=== PATIENT | male | born 1960 | race African-American/Black ===

== ENCOUNTER 2023-01-15 14:26 | Inpatient (IN) | payer MEDICARE, MEDICAID ==
[2023-01-15] MEDS ORDERED: cloNIDine 0.1 MG TAB PO PRN (16:08)
[2023-01-15] MEDS ORDERED: Acetaminophen 325 MG TAB PO PRN (16:08)
[2023-01-15] MEDS ORDERED: Non-Formulary Item 1 EACH (Ertapenem 1 GM Vial) IVPB SCH (16:15)
[2023-01-15] MEDS ORDERED: metFORMIN 500 MG TAB PO SCH (17:00)
[2023-01-15 19:50] VITALS: BMI 19.4
[2023-01-15 20:41] LABS: SARS-CoV-2 NAA Rapid Test Not Detected (NotDetected)
[2023-01-15] MEDS: Brinzolamide 1% Ophth SUSP 10 ml Bottle L EYE SCH (21:37)
[2023-01-15] MEDS: Polyethylene Glycol 3350 17 GM Packet PO SCH (21:39)
[2023-01-15] MEDS: Bacitracin 1 PK TOP SCH (21:43)
[2023-01-15] MEDS: carBAMazepine 200 MG TAB PO SCH (21:44)
[2023-01-15] MEDS: Docusate 100 MG CAP PO SCH (21:44)
[2023-01-15] MEDS: Calcium Carbonate 600 MG + Vit D TAB PO SCH (21:44)
[2023-01-15] MEDS: Baclofen 10 MG TAB PO SCH (21:45)
[2023-01-15] MEDS: Ursodiol 300 MG CAP PO SCH (21:45)
[2023-01-15] MEDS: OLANZapine ODT 5 MG TAB PO SCH (21:45)
[2023-01-15] MEDS: Ferrous Sulfate 325 MG TAB PO SCH (21:46)
[2023-01-15] MEDS: Folic Acid 1 MG TAB PO SCH (21:46)
[2023-01-15] MEDS: Latanoprost 0.005% Ophth Soln 2.5 ml Bottle L EYE SCH (21:46)
[2023-01-15] MEDS: Timolol 0.5% Ophth Soln 5 ml Bottle L EYE SCH (21:56)
[2023-01-15] MEDS: Lisinopril 20 MG TAB PO SCH (21:58)
[2023-01-15] MEDS: ACETYLCYSTEINE 600 MG PO SCH (21:59)
[2023-01-15] MEDS: Brimonidine Tartrate 0.2% Ophth Soln 5 ml Bottle L EYE SCH (22:08)
[2023-01-16 05:30] LABS: Hemoglobin 9.7 g/dL (14.0-18.0); Platelet Count 469 10x3/uL (130-400)
[2023-01-16] MEDS ORDERED: MICONAZOLE NITRATE DT SCH (09:00)
[2023-01-16] MEDS: Polyethylene Glycol 3350 17 GM Packet PO SCH ×3 (09:08→21:51)
[2023-01-16] MEDS: Bacitracin 1 PK TOP SCH ×2 (09:10→21:52)
[2023-01-16] MEDS: carBAMazepine 200 MG TAB PO SCH ×2 (09:11→21:55)
[2023-01-16] MEDS: Ursodiol 300 MG CAP PO SCH ×3 (09:11→21:53)
[2023-01-16] MEDS: Rosuvastatin 10 MG TAB PO SCH (09:11)
[2023-01-16] MEDS: Docusate 100 MG CAP PO SCH ×2 (09:12→21:53)
[2023-01-16] MEDS: Ferrous Sulfate 325 MG TAB PO SCH ×2 (09:12→21:54)
[2023-01-16] MEDS: Baclofen 10 MG TAB PO SCH ×2 (09:12→21:54)
[2023-01-16] MEDS: Calcium Carbonate 600 MG + Vit D TAB PO SCH ×2 (09:12→21:53)
[2023-01-16] MEDS: Lisinopril 20 MG TAB PO SCH ×2 (09:12→21:54)
[2023-01-16] MEDS: Folic Acid 1 MG TAB PO SCH ×2 (09:12→21:55)
[2023-01-16] MEDS: Brimonidine Tartrate 0.2% Ophth Soln 5 ml Bottle L EYE SCH ×2 (09:17→22:05)
[2023-01-16] MEDS: Brinzolamide 1% Ophth SUSP 10 ml Bottle L EYE SCH ×3 (09:19→21:42)
[2023-01-16] MEDS: Timolol 0.5% Ophth Soln 5 ml Bottle L EYE SCH ×2 (09:24→21:58)
[2023-01-16] MEDS: Nystatin Powder 15 GM BOT TOP SCH ×2 (09:38→22:01)
[2023-01-16] MEDS: ACETYLCYSTEINE 600 MG PO SCH (09:55)
[2023-01-16] MEDS ORDERED: Meropenem 1 GM in Sodium Chloride 0.9% 100 ML IVPB SCH (12:00)
[2023-01-16] MEDS ORDERED: Ertapenem 1 GM in Sodium Chloride 0.9% 100 ML IVPB SCH (12:00)
[2023-01-16] MEDS: Meropenem 1 GM in Sodium Chloride 0.9% 100 ML IVPB SCH (21:43)
[2023-01-16] MEDS: Latanoprost 0.005% Ophth Soln 2.5 ml Bottle L EYE SCH (21:49)
[2023-01-16] MEDS: OLANZapine ODT 5 MG TAB PO SCH (21:53)
[2023-01-17] MEDS: Meropenem 1 GM in Sodium Chloride 0.9% 100 ML IVPB SCH ×3 (05:23→22:06)
[2023-01-17] MEDS: Brimonidine Tartrate 0.2% Ophth Soln 5 ml Bottle L EYE SCH ×2 (09:02→22:25)
[2023-01-17] MEDS: Ursodiol 300 MG CAP PO SCH ×3 (09:04→22:10)
[2023-01-17] MEDS: Rosuvastatin 10 MG TAB PO SCH (09:04)
[2023-01-17] MEDS: Polyethylene Glycol 3350 17 GM Packet PO SCH ×3 (09:04→22:03)
[2023-01-17] MEDS: Bacitracin 1 PK TOP SCH ×2 (09:04→22:04)
[2023-01-17] MEDS: Lisinopril 20 MG TAB PO SCH ×2 (09:06→22:10)
[2023-01-17] MEDS: Ferrous Sulfate 325 MG TAB PO SCH ×2 (09:06→22:10)
[2023-01-17] MEDS: Calcium Carbonate 600 MG + Vit D TAB PO SCH ×2 (09:06→22:10)
[2023-01-17] MEDS: Timolol 0.5% Ophth Soln 5 ml Bottle L EYE SCH ×2 (09:07→21:59)
[2023-01-17] MEDS: metFORMIN 500 MG TAB PO SCH (09:07)
[2023-01-17] MEDS: Baclofen 10 MG TAB PO SCH ×2 (09:09→22:10)
[2023-01-17] MEDS: Folic Acid 1 MG TAB PO SCH ×2 (09:09→22:10)
[2023-01-17] MEDS: Docusate 100 MG CAP PO SCH ×2 (09:09→22:10)
[2023-01-17] MEDS: carBAMazepine 200 MG TAB PO SCH ×2 (09:09→22:10)
[2023-01-17] MEDS: Brinzolamide 1% Ophth SUSP 10 ml Bottle L EYE SCH ×3 (09:12→22:35)
[2023-01-17] MEDS: Nystatin Powder 15 GM BOT TOP SCH ×2 (09:12→22:05)
[2023-01-17] MEDS: OLANZapine ODT 5 MG TAB PO SCH (22:10)
[2023-01-17] MEDS: Latanoprost 0.005% Ophth Soln 2.5 ml Bottle L EYE SCH (22:20)
[2023-01-18] MEDS: Meropenem 1 GM in Sodium Chloride 0.9% 100 ML IVPB SCH ×3 (05:47→22:04)
[2023-01-18] MEDS: Brinzolamide 1% Ophth SUSP 10 ml Bottle L EYE SCH ×3 (08:51→20:41)
[2023-01-18] MEDS: Polyethylene Glycol 3350 17 GM Packet PO SCH ×3 (08:54→20:26)
[2023-01-18] MEDS: carBAMazepine 200 MG TAB PO SCH ×2 (08:54→20:29)
[2023-01-18] MEDS: Calcium Carbonate 600 MG + Vit D TAB PO SCH ×2 (08:55→20:29)
[2023-01-18] MEDS: Bacitracin 1 PK TOP SCH ×2 (08:55→20:26)
[2023-01-18] MEDS: Lisinopril 20 MG TAB PO SCH ×2 (08:55→20:29)
[2023-01-18] MEDS: Rosuvastatin 10 MG TAB PO SCH (08:55)
[2023-01-18] MEDS: Brimonidine Tartrate 0.2% Ophth Soln 5 ml Bottle L EYE SCH ×2 (08:55→20:46)
[2023-01-18] MEDS: Ursodiol 300 MG CAP PO SCH ×3 (08:55→20:29)
[2023-01-18] MEDS: Ferrous Sulfate 325 MG TAB PO SCH ×2 (08:56→20:29)
[2023-01-18] MEDS: Baclofen 10 MG TAB PO SCH ×2 (08:56→20:29)
[2023-01-18] MEDS: Folic Acid 1 MG TAB PO SCH ×2 (08:56→20:29)
[2023-01-18] MEDS: metFORMIN 500 MG TAB PO SCH (08:56)
[2023-01-18] MEDS: Docusate 100 MG CAP PO SCH ×2 (08:56→20:28)
[2023-01-18] MEDS: Timolol 0.5% Ophth Soln 5 ml Bottle L EYE SCH ×2 (08:59→20:26)
[2023-01-18] MEDS: Nystatin Powder 15 GM BOT TOP SCH ×2 (09:00→20:30)
[2023-01-18] MEDS: OLANZapine ODT 5 MG TAB PO SCH (20:28)
[2023-01-18] MEDS: Latanoprost 0.005% Ophth Soln 2.5 ml Bottle L EYE SCH (20:34)
[2023-01-19] MEDS: Meropenem 1 GM in Sodium Chloride 0.9% 100 ML IVPB SCH ×3 (05:43→21:45)
[2023-01-19] MEDS: Brimonidine Tartrate 0.2% Ophth Soln 5 ml Bottle L EYE SCH ×2 (08:49→21:44)
[2023-01-19] MEDS: Bacitracin 1 PK TOP SCH ×2 (08:50→21:34)
[2023-01-19] MEDS: Ursodiol 300 MG CAP PO SCH ×3 (08:51→21:35)
[2023-01-19] MEDS: carBAMazepine 200 MG TAB PO SCH ×2 (08:51→21:36)
[2023-01-19] MEDS: Rosuvastatin 10 MG TAB PO SCH (08:51)
[2023-01-19] MEDS: Calcium Carbonate 600 MG + Vit D TAB PO SCH ×2 (08:52→21:36)
[2023-01-19] MEDS: Brinzolamide 1% Ophth SUSP 10 ml Bottle L EYE SCH ×3 (08:52→21:49)
[2023-01-19] MEDS: Lisinopril 20 MG TAB PO SCH ×2 (08:52→21:37)
[2023-01-19] MEDS: metFORMIN 500 MG TAB PO SCH (08:53)
[2023-01-19] MEDS: Folic Acid 1 MG TAB PO SCH ×2 (08:53→21:36)
[2023-01-19] MEDS: Docusate 100 MG CAP PO SCH ×2 (08:53→21:36)
[2023-01-19] MEDS: Baclofen 10 MG TAB PO SCH ×2 (08:55→21:36)
[2023-01-19] MEDS: Ferrous Sulfate 325 MG TAB PO SCH ×2 (08:55→21:36)
[2023-01-19] MEDS: Nystatin Powder 15 GM BOT TOP SCH ×2 (08:57→21:34)
[2023-01-19] MEDS: Timolol 0.5% Ophth Soln 5 ml Bottle L EYE SCH ×2 (08:58→21:32)
[2023-01-19] MEDS: Polyethylene Glycol 3350 17 GM Packet PO SCH ×3 (09:03→21:33)
[2023-01-19] MEDS: OLANZapine ODT 5 MG TAB PO SCH (21:36)
[2023-01-19] MEDS: Latanoprost 0.005% Ophth Soln 2.5 ml Bottle L EYE SCH (21:38)
[2023-01-20] MEDS: Meropenem 1 GM in Sodium Chloride 0.9% 100 ML IVPB SCH ×3 (05:23→21:50)
[2023-01-20] MEDS: Bacitracin 1 PK TOP SCH ×2 (09:10→21:49)
[2023-01-20] MEDS: metFORMIN 500 MG TAB PO SCH (09:10)
[2023-01-20] MEDS: Lisinopril 20 MG TAB PO SCH ×2 (09:10→21:58)
[2023-01-20] MEDS: Ursodiol 300 MG CAP PO SCH ×3 (09:11→21:56)
[2023-01-20] MEDS: Ferrous Sulfate 325 MG TAB PO SCH ×2 (09:11→21:56)
[2023-01-20] MEDS: Baclofen 10 MG TAB PO SCH ×2 (09:11→21:58)
[2023-01-20] MEDS: Folic Acid 1 MG TAB PO SCH ×2 (09:11→21:56)
[2023-01-20] MEDS: carBAMazepine 200 MG TAB PO SCH ×2 (09:11→21:56)
[2023-01-20] MEDS: Docusate 100 MG CAP PO SCH ×2 (09:11→21:56)
[2023-01-20] MEDS: Calcium Carbonate 600 MG + Vit D TAB PO SCH ×2 (09:11→21:57)
[2023-01-20] MEDS: Polyethylene Glycol 3350 17 GM Packet PO SCH ×3 (09:12→21:48)
[2023-01-20] MEDS: Timolol 0.5% Ophth Soln 5 ml Bottle L EYE SCH ×2 (09:14→22:05)
[2023-01-20] MEDS: Brinzolamide 1% Ophth SUSP 10 ml Bottle L EYE SCH ×3 (09:15→21:47)
[2023-01-20] MEDS: Brimonidine Tartrate 0.2% Ophth Soln 5 ml Bottle L EYE SCH ×2 (09:16→21:55)
[2023-01-20] MEDS: Nystatin Powder 15 GM BOT TOP SCH ×2 (09:17→21:49)
[2023-01-20] MEDS: Rosuvastatin 10 MG TAB PO SCH ×2 (10:56→21:56)
[2023-01-20] MEDS: OLANZapine ODT 5 MG TAB PO SCH (21:57)
[2023-01-20] MEDS: Latanoprost 0.005% Ophth Soln 2.5 ml Bottle L EYE SCH (22:12)
[2023-01-21] MEDS: Meropenem 1 GM in Sodium Chloride 0.9% 100 ML IVPB SCH ×3 (05:22→21:47)
[2023-01-21] MEDS: metFORMIN 500 MG TAB PO SCH (09:11)
[2023-01-21] MEDS: Bacitracin 1 PK TOP SCH ×2 (09:11→21:36)
[2023-01-21] MEDS: Ursodiol 300 MG CAP PO SCH ×3 (09:12→21:37)
[2023-01-21] MEDS: Baclofen 10 MG TAB PO SCH ×2 (09:12→21:38)
[2023-01-21] MEDS: Brimonidine Tartrate 0.2% Ophth Soln 5 ml Bottle L EYE SCH ×2 (09:13→21:49)
[2023-01-21] MEDS: carBAMazepine 200 MG TAB PO SCH ×2 (09:13→21:38)
[2023-01-21] MEDS: Polyethylene Glycol 3350 17 GM Packet PO SCH ×3 (09:19→21:36)
[2023-01-21] MEDS: Docusate 100 MG CAP PO SCH ×2 (09:20→21:37)
[2023-01-21] MEDS: Ferrous Sulfate 325 MG TAB PO SCH ×2 (09:20→21:38)
[2023-01-21] MEDS: Calcium Carbonate 600 MG + Vit D TAB PO SCH ×2 (09:21→21:37)
[2023-01-21] MEDS: Folic Acid 1 MG TAB PO SCH ×2 (09:21→21:57)
[2023-01-21] MEDS: Nystatin Powder 15 GM BOT TOP SCH ×2 (09:22→21:56)
[2023-01-21] MEDS: Lisinopril 20 MG TAB PO SCH ×2 (09:25→21:38)
[2023-01-21] MEDS: Timolol 0.5% Ophth Soln 5 ml Bottle L EYE SCH ×2 (09:26→21:41)
[2023-01-21] MEDS: Brinzolamide 1% Ophth SUSP 10 ml Bottle L EYE SCH ×3 (09:28→21:35)
[2023-01-21] MEDS: Rosuvastatin 10 MG TAB PO SCH (21:37)
[2023-01-21] MEDS: OLANZapine ODT 5 MG TAB PO SCH (21:37)
[2023-01-21] MEDS: Latanoprost 0.005% Ophth Soln 2.5 ml Bottle L EYE SCH (21:58)
[2023-01-22] MEDS: Meropenem 1 GM in Sodium Chloride 0.9% 100 ML IVPB SCH ×3 (05:07→21:15)
[2023-01-22] MEDS: Polyethylene Glycol 3350 17 GM Packet PO SCH ×3 (08:25→21:12)
[2023-01-22] MEDS: Calcium Carbonate 600 MG + Vit D TAB PO SCH ×2 (08:26→21:13)
[2023-01-22] MEDS: Lisinopril 20 MG TAB PO SCH ×2 (08:26→21:13)
[2023-01-22] MEDS: Bacitracin 1 PK TOP SCH ×2 (08:26→21:13)
[2023-01-22] MEDS: Ursodiol 300 MG CAP PO SCH ×3 (08:26→21:13)
[2023-01-22] MEDS: Ferrous Sulfate 325 MG TAB PO SCH ×2 (08:27→21:13)
[2023-01-22] MEDS: Brimonidine Tartrate 0.2% Ophth Soln 5 ml Bottle L EYE SCH ×2 (08:27→21:36)
[2023-01-22] MEDS: metFORMIN 500 MG TAB PO SCH (08:27)
[2023-01-22] MEDS: Baclofen 10 MG TAB PO SCH ×2 (08:28→21:13)
[2023-01-22] MEDS: Docusate 100 MG CAP PO SCH ×2 (08:28→21:13)
[2023-01-22] MEDS: Folic Acid 1 MG TAB PO SCH ×2 (08:28→21:13)
[2023-01-22] MEDS: carBAMazepine 200 MG TAB PO SCH ×2 (08:29→21:13)
[2023-01-22] MEDS: Nystatin Powder 15 GM BOT TOP SCH ×2 (08:29→21:15)
[2023-01-22] MEDS: Timolol 0.5% Ophth Soln 5 ml Bottle L EYE SCH ×2 (08:32→21:35)
[2023-01-22] MEDS: Brinzolamide 1% Ophth SUSP 10 ml Bottle L EYE SCH ×3 (08:41→21:35)
[2023-01-22 17:48] VITALS: TEMP 98
[2023-01-22] MEDS: Rosuvastatin 10 MG TAB PO SCH (21:12)
[2023-01-22] MEDS: OLANZapine ODT 5 MG TAB PO SCH (21:13)
[2023-01-22] MEDS: Latanoprost 0.005% Ophth Soln 2.5 ml Bottle L EYE SCH (21:37)
[2023-01-23] MEDS: Brinzolamide 1% Ophth SUSP 10 ml Bottle L EYE SCH (08:03)
[2023-01-23] MEDS: Calcium Carbonate 600 MG + Vit D TAB PO SCH (08:06)
[2023-01-23] MEDS: Ursodiol 300 MG CAP PO SCH (08:06)
[2023-01-23] MEDS: Ferrous Sulfate 325 MG TAB PO SCH (08:06)
[2023-01-23] MEDS: Bacitracin 1 PK TOP SCH (08:06)
[2023-01-23] MEDS: carBAMazepine 200 MG TAB PO SCH (08:06)
[2023-01-23] MEDS: metFORMIN 500 MG TAB PO SCH (08:09)
[2023-01-23] MEDS: Timolol 0.5% Ophth Soln 5 ml Bottle L EYE SCH (08:09)
[2023-01-23 08:17] VITALS: BP 141/76
[2023-01-23] MEDS: Docusate 100 MG CAP PO SCH (08:17)
[2023-01-23] MEDS: Folic Acid 1 MG TAB PO SCH (08:24)
[2023-01-23] MEDS: Lisinopril 20 MG TAB PO SCH (08:24)
[2023-01-23] MEDS: Polyethylene Glycol 3350 17 GM Packet PO SCH (08:24)
[2023-01-23] MEDS: Brimonidine Tartrate 0.2% Ophth Soln 5 ml Bottle L EYE SCH (08:25)
[2023-01-23] MEDS: Baclofen 10 MG TAB PO SCH (08:26)
[2023-01-23] MEDS: Nystatin Powder 15 GM BOT TOP SCH (08:27)
== END 2023-01-23 10:15 | disposition home or self-care (01) | DRG 872 ==
LOC: BURMED 15:30
PROVIDERS: ADMIT Family Medicine; ATTEND Family Medicine
DX: A41.51 Sepsis due to Escherichia coli [E. coli] (principal); N12 Tubulo-interstitial nephritis, not specified as acute or chronic; F84.0 Autistic disorder; N39.0 Urinary tract infection, site not specified; G81.90 Hemiplegia, unspecified affecting unspecified side; E11.51 Type 2 diabetes mellitus with diabetic peripheral angiopathy without gangrene; D64.9 Anemia, unspecified; H40.9 Unspecified glaucoma; E11.36 Type 2 diabetes mellitus with diabetic cataract; G40.909 Epilepsy, unspecified, not intractable, without status epilepticus; F79 Unspecified intellectual disabilities; I10 Essential (primary) hypertension; M62.838 Other muscle spasm; G47.00 Insomnia, unspecified; Z20.822 Contact with and (suspected) exposure to COVID-19; Z86.15 Personal history of latent tuberculosis infection; Z86.711 Personal history of pulmonary embolism
CPT/HCPCS: 36415; 36416; 82565; 85014; 85018; 85049; J1650; J2185; J3490; U0002